=== PATIENT | male | born 1975 | race Caucasian/White ===

== ENCOUNTER 2016-04-29 09:25 | Emergency (ER) | payer OTHER ==
[2016-04-29] MEDS ORDERED: DOXYcycline CAP(*) 100 MG PO ONE ×2 (10:51→10:52)
--- NOTE | 2016-04-29 10:51 | UC ---
Skin Complaint HPI - HPI Summary HPI Summary: pt reports he pulled a "tiny tick off the back of left knee on Saturday morning" Pt thinks the tick was on him for less than 24 hours. tp is concerned about Lyme exposure. - History of Current Complaint Chief Complaint: [facility] Time Seen by Provider: 04/29/16 10:47 Stated Complaint: TICK BITE Hx Obtained From: Patient Onset/Duration: Sudden Onset Timing: Constant Onset Severity: Mild Current Severity: Mild Location: Discrete - posterior left knee Character: Redness Aggravating: Touch Associated Signs & Symptoms: Positive: Bruising Related History: Insect Bite/Sting - Allergy/Home Medications Allergies/Adverse Reactions: Allergies Allergy/AdvReac Type Severity Reaction Status Date / Time No Known Allergies Allergy Verified 04/29/16 10:41 Home Medications: Home Medications NK [No Home Medications Reported] 04/29/16 [History Confirmed 04/29/16] Review of Systems Constitutional: Negative Skin: Bruising, Other - erythema Eyes: Negative ENT: Negative Respiratory: Negative Cardiovascular: Negative Gastrointestinal: Negative Genitourinary: Negative Motor: Negative Neurovascular: Negative Musculoskeletal: Negative Neurological: Negative Psychological: Negative All Other Systems Reviewed And Are Negative: Yes PMH/Surg Hx/FS Hx/Imm Hx Previously Healthy: Yes - Surgical History Surgical History: Yes Surgery Procedure, Year, and Place: right hand surgery after dog bite - Family History Known Family History: Positive: Other - negative [facility] [place] for LYME - Social History Lives: With Family Alcohol Use: None Substance Use Type: None Smoking Status (MU): Never Smoked Tobacco Physical Exam Triage Information Reviewed: Yes Appearance: Well-Appearing Vital Signs: Initial Vital Signs Temp 99.0 F 04/29/16 10:41 Pulse 65 04/29/16 10:41 Resp 16 04/29/16 10:41 BP 138/96 04/29/16 10:41 Pulse Ox 99 04/29/16 10:41 Vital Signs Reviewed: Yes ENT Exam: Normal Neck exam: Normal Respiratory Exam: Normal Cardiovascular Exam: Normal Musculoskeletal Exam: Normal Neurological Exam: Normal Psychological Exam: Normal Skin Exam: Other - dime size erythematous area, posterior left knee with darkened center, pin prick size Course/Dx - Differential Diagnoses - Skin Complaint Differential Diagnoses: Cellulitis, Tick Born Illness - Diagnoses Provider Diagnoses: tick bite. Localized reaction Discharge - Discharge Plan Condition: Stable Disposition: HOME Patient Education Materials: Tick Bite (ED) Referrals: [facility] [Outside]
[2016-04-29 11:18] VITALS: BP 142/96
== END 2016-04-29 11:21 | disposition home or self-care (01) ==
LOC: UCCORT 09:25
DX: T63.481A Toxic effect of venom of other arthropod, accidental (unintentional), initial encounter (principal); T63.891A Toxic effect of contact with other venomous animals, accidental (unintentional), initial encounter; L53.0 Toxic erythema
CPT/HCPCS: 99202; A9270-GY; G0463